=== PATIENT | female | born 1940 | race Caucasian/White ===

== ENCOUNTER 2024-10-20 14:13 | Emergency (ER) | payer MEDICARE, SELFPAY ==
--- NOTE | ~2024-10-20 | CT_ITS ---
EXAMINATION: CT HEAD WITHOUT CONTRAST CLINICAL INFORMATION: Fall, head pain. COMPARISON: None available. TECHNIQUE: Contiguous axial imaging was performed from the skull base to vertex without intravenous administration of contrast. This CT examination was performed using dose optimization techniques as appropriate, variously including the following: *Automated exposure control *Adjustment of mA and/or kV according to patient size (this includes techniques or standardized protocols for targeted exams where dose is matched to indication/reason for exam; i.e. extremities or head) *Use of iterative reconstruction technique FINDINGS: There is no evidence of intracranial hemorrhage or extra-axial fluid collection. There is no mass effect, or edema. No CT evidence of acute territorial infarct. Ventricles, sulci, and cisterns are normal in size and configuration for patient age. No hydrocephalus. No midline shift. Negative hyperdense MCA sign. Negative insular ribbon sign. Patchy periventricular and deep white matter hypoattenuation is consistent with mild small vessel ischemic changes. Partial empty sella. Orbital contents appear normal. There are retinal calcifications and lens replacements. No extracranial soft tissue abnormalities. The paranasal sinuses, mastoid air cells, and tympanic cavities are normally aerated. No suspicious bony abnormalities. There are no acute fractures evident. CT/CT head/brain wo IV con IMPRESSION: No acute intracranial abnormality. No fracture evident. Electronically signed by: Harsh Shane MD 10/20/2024 04:03 PM EDT
[2024-10-20 14:17] VITALS: BP 177/107; PULSE 66; RESP 18; TEMP 36.6; O2SAT 98; BMI 24.5
--- NOTE | 2024-10-20 14:18 | ED_ITS ---
HPI - General Adult General Chief complaint: Headache Stated complaint: Fall Head Strike 10/18/24 Time Seen by Provider: 10/20/24 15:10 Source: patient Mode of arrival: ambulatory Limitations: no limitations History of Present Illness ED Provider: MEHRAN SARKAR PA-C HPI narrative: 84 year old female with pmhx significant for HTN, anxiety/depression presents to the ED today for evaluation following fall 2 days ago. Patient recalls getting up from her bed around midnight and ambulating to the kitchen to get a glass of water. She reports falling while in the kitchen and striking the back of her head on the tile. She is unsure if she lost consciousness. She is not on anticoagulation. She states she was only on the ground for a few seconds before she was able to stand and ambulate back to bed. She initially attributed this to dehydration as she was not staying adequately hydrated. Admits to slight headache on waking the following morning that has been improving since. Reports resolution of headache on presentation to ED today. Reports speaking with her PCP today regarding incident who recommended coming to the ED for further evaluation. Denies dizziness, vision changes, nausea or vomiting, chest pain, shortness of breath, palpitations, Urinary symptoms, cough. Denies any symptoms at present. No history of similar. She does have high blood pressure and takes lisinopril for this. No known history of hypotension. Related Data Allergies Allergy/AdvReac Type Severity Reaction Status Date / Time doxycycline Allergy Anaphylaxis Verified 10/20/24 14:19 Penicillins Allergy Rash Verified 10/20/24 14:19 Review of Systems 2 Review of Systems: Yes all other systems are reviewed and are negative [facility] Past Medical History Attestation statement: The following information was validated with the patient. Source: old records reviewed and nursing notes reviewed Social History Social History Advance Directives: Yes Advance Directives Information Provided: Yes Advance Directives on File: No Do you have a plan to hurt others: No Plan Physical Exam ED Vital Signs: Vital Signs - 24 hr 10/20/24 14:17 10/20/24 15:46 10/20/24 15:54 Temperature 97.9 F Pulse Rate 66 64 59 Respiratory Rate 18 Blood Pressure 177/107 H 148/67 H 157/79 H Pulse Oximetry 98 Oxygen Delivery Method Room Air 05/23/25 15:55 10/20/24 16:44 Temperature 97.9 F Pulse Rate 61 61 Respiratory Rate 18 Blood Pressure 168/83 H 168/83 H Pulse Oximetry 98 Oxygen Delivery Method Room Air BMI result Body Mass Index 24.5 hypertensive, afebrile. Not tachycardic or hypoxic. General: Well appearing, in no acute distress. Skin: Warm, dry, intact. No rashes or lesions. Head: Normocephalic, atraumatic. no palpable skull fracture or hematoma. No chadwick sign, raccoon eyes. EENT: Hearing is intact b/l. Conjunctiva clear. PERRLA. EOM intact. Moist mucous membranes.? Neck: Supple without LAD Cardiac: Chest wall symmetric. RRR Lungs: Normal respiratory effort without accessory muscle use. CTA bilaterally. No rales, rhonchi, or wheezes.? Back: No midline spinous or paraspinal tenderness. No step off deformity. Ext: Upper and lower extremities atraumatic, without tenderness, deformity, swelling or erythema Neuro: AOx3. Normal speech. Ambulating with steady gait Course Course Course Narrative: RME, this is a rapid medical exam performed by Gavin Pollock please refer to primary provider for complete H&P- 84-year-old female presents for evaluation after a fall on happened 2 days ago. She fell and struck the back of her head. She is not sure if she had a syncopal episode but does not tripping or slipping. Her headache is improving, but she discuss with her primary doctor who recommended that she come to the hospital for evaluation. Plan for CT head as well as labs, EKG. No neuro deficits in triage. Reevaluation(s) Reevaluation #1: CBC without leukocytosis or left shift. Normocytic anemia, no priors to compare to. Chemistry showing hyponatremia to 131 - no priors to compare to. No AMS/ confusion. Patient AOX3.?No acute electrolyte abnormalities requiring intervention. No anahi. Troponin wnl. Liver function/ lipase wnl. UA without infection. Negative covid/flu/rsv. Ortho vitals negative. CT head/brain without bleed or skull fracture. EKG showing NSR without acute ischemic changes. > work up reassuring. Patient is well appearing and asymptomatic. Will have her follow up with PCP. Patient has remained stable throughout ED visit today. Discussed worrisome signs and symptoms and when to return to the ED. All questions answered at this time. Patient is agreeable with disposition and stable for discharge. Medical Decision Making Medical Decision Making [facility] Narrative: 84 year old female with pmhx significant for HTN, anxiety/depression presents to the ED today for evaluation following fall 2 days ago. Patient initially hypertensive on arrival to 177/107. She states her blood pressure elevates when she is around doctor/in hospitals. She states that they typically take 3 blood pressures and average it as it is typically high. She has been compliant with her lisinopril and did take this this morning. Asymptomatic. exam nonfocal and unremarkable. Differential diagnosis includes anemia, electrolyte abnormality, dehydration, viral syndrome, migraine vs tension type headache, ortho hypotension. No headache red flags. No focal neurologic findings. Presentation not consistent with acute intracranial bleed including SAH. Presentation not consistent with acute PEGGER infection including meningitis or brain abscess. Unlikely ASC, arrhythmia, PE. Labs, UA, imaging ordered from triage. Will add on orthostatic vital signs. Patient is well-appearing and asymptomatic. Anticipate discharge home if workup unremarkable. Differential Diagnosis Differential Diagnoses: The differential diagnosis associated with the presentation includes as above. Admission/Observation Not indicated Lab Data [facility] Lab Attestation statement: I reviewed the patient's lab results. as above. 10/20/24 14:38 10/20/24 14:38 Labs: Lab Results 10/20/24 10/20/24 Range/Units 14:38 16:11 WBC 7.0 (4.8-10.8) X10*3/uL RBC 3.26 L (4.20-5.50) X10*6/uL Hgb 10.8 L (12.0-16.0) g/dl Hct 31.0 L (37.0-47.0) % MCV 95.1 (80.0-98.0) fL MCH 33.1 H (27.0-33.0) pg MCHC 34.8 (31.0-35.0) g/dl RDW 13.1 (11.0-16.0) % Plt Count 247 (160-400) X10*3/uL MPV 9.3 L (9.4-12.3) fL Immature Gran % (Auto) 0.1 (0.0-0.4) % Neut % (Auto) 46.4 (45-73) % Lymph % (Auto) 42.0 H (20-40) % [place] % (Auto) 8.5 (2-11) % Eos % (Auto) 2.0 (0-4) % Baso % (Auto) 1.0 (0-2) % Lymph # (Auto) 2.9 (1.2-4.9) X10*3/uL [place] # (Auto) 0.6 (0.1-1.2) X10*3/uL Eos # (Auto) 0.1 (0.0-0.4) X10*3/uL Baso # (Auto) 0.1 (0.0-0.2) X10*3/uL Abs Immat Gran (auto) 0.01 (0.00-0.03) X10*3/uL Absolute Neuts (auto) 3.2 (2.0-8.3) x10*3/uL Absolute Nucleated RBC 0.000 (0.0-0.012) X10*3/uL Nucleated RBC % (auto) 0.0 (0.0-0.2) /100WBC Sodium 131 L (135-145) mmol/L Potassium 4.2 (3.3-5.1) mmol/L Chloride 100 (96-108) mmol/L Carbon Dioxide 26 (22-29) mmol/L Anion Gap 9 L (12-20) BUN 11 (9-16) mg/dL Creatinine 0.92 (0.5-1.4) mg/dL Estim Creat Clear Calc 42.4 Estimated GFR 58 Random Glucose 105 (60-115) mg/dL Calcium 8.8 (8.4-10.2) mg/dL Total Bilirubin 0.5 (0.0-1.0) mg/dL AST 27 (5-31) U/L ALT 15 (0-31) U/L Alkaline Phosphatase 45 (39-117) U/L Troponin I High Sens 2.9 (<3.5-17.0) ng/L Total Protein 6.9 (6.5-8.0) g/dL Albumin 4.1 (3.5-5.0) g/dL Lipase 27 (8-78) U/L Urine Color Yellow Urine Appearance Clear Urine pH 7.0 (5.0-9.0) Ur Specific [place] <= 1.005 (1.005-1.025) Urine Protein Negative (Neg-Trace) mg/dL Urine Glucose (UA) Negative (Negative) mg/dL Urine Ketones Negative (Negative) mg/dL Urine Blood Negative (Negative) Urine Nitrite Negative (Negative) Ur Leukocyte Esterase Negative (Negative) Urine RBC 0-2 (0-2) /HPF Urine WBC 0-5 (0-5) /HPF Ur Squamous Epith Cells 0-2 (0-2) /HPF Urine Bacteria None Seen (None Seen) Hyaline Casts 0-2 (0-2) /LPF Influenza Type A (PCR) NEGATIVE (Negative) Influenza Type B (PCR) NEGATIVE (Negative) RSV RNA Qual (PCR) NEGATIVE (Negative) SARS-CoV-2 RNA (RT-PCR) NEGATIVE (Negative) Independent Interpretation I performed an independent interpretation of an: EKG and CT Scan Interpretation: CT head without bleed EKG showing NSR, no acute ischemic changes Radiology Impression Discussion of test interpretation with radiology: I have reviewed the radiologist's reading. Radiologist Impression: EXAMINATION: CT HEAD WITHOUT CONTRAST CLINICAL INFORMATION: Fall, head pain. COMPARISON: None available. TECHNIQUE: Contiguous axial imaging was performed from the skull base to vertex without intravenous administration of contrast. This CT examination was performed using dose optimization techniques as appropriate, variously including the following: *Automated exposure control *Adjustment of mA and/or kV according to patient size (this includes techniques or standardized protocols for targeted exams where dose is matched to indication/reason for exam; i.e. extremities or head) *Use of iterative reconstruction technique FINDINGS: There is no evidence of intracranial hemorrhage or extra-axial fluid collection. There is no mass effect, or edema. No CT evidence of acute territorial infarct. Ventricles, sulci, and cisterns are normal in size and configuration for patient age. No hydrocephalus. No midline shift. Negative hyperdense MCA sign. Negative insular ribbon sign. Patchy periventricular and deep white matter hypoattenuation is consistent with mild small vessel ischemic changes. Partial empty sella. Orbital contents appear normal. There are retinal calcifications and lens replacements. No extracranial soft tissue abnormalities. The paranasal sinuses, mastoid air cells, and tympanic cavities are normally aerated. No suspicious bony abnormalities. There are no acute fractures evident. CT/CT head/brain wo IV con IMPRESSION: No acute intracranial abnormality. No fracture evident. Electronically signed by: Harsh Shane MD 10/20/2024 04:03 PM EDT Independent Historian Clinical information obtained from an independent historian. History obtained from or confirmed by: Friend Prescription Management I considered prescription management with: Pain Medication Chronic Conditions Patient?s care impacted by: Hypertension Social Determinants Patient?s care significantly limited by Social Determinants of Health including: Other Social Determinant of Health Critical Care Time Critical Care Time Critical Care Time: No Discharge Plan Discharge Clinical Impression: Closed head injury Patient Disposition: Home, Self-Care Instructions: Head Injury (ED) Additional Instructions: Your workup today is reassuring. The CT scan of your head does not show intracranial bleed or skull fracture. Your blood work shows low hemaglobin and hematocrit consistent with anemia however we do not have any priors to compare to. You are asymptomatic. Please follow up with your PCP for repeat labs next week. Return with any new or worsening symptoms. In the case of an emergency call 911. Referrals: Johanna Jaramillo NP [Primary Care Provider] - Interventions: ED Discharge Assessment Last Done: 10/20/24 16:44 Discharge Date/Time: 10/20/24 16:45 Print Language: Kyrgyz
--- NOTE | 2024-10-20 14:20 | ECG_ITS ---
Test Reason : weakness Blood Pressure : */* mmHG Vent. Rate : 65 BPM Atrial Rate : 65 BPM P-R Int : 148 ms QRS Dur : 90 ms QT Int : 420 ms P-R-T Axes : 59 34 65 degrees QTcB Int : 436 ms Normal sinus rhythm Normal ECG No previous ECGs available Referred By: Harshil Pollock Electronically Signed By: Emanuel Heath
[2024-10-20 14:55] LABS: MANUAL DIFF FLAG NO
[2024-10-20 14:57] LABS: Basophils Absolute Auto 0.1 X10*3/uL (0.0-0.2); Eosinophils Absolute Auto 0.1 X10*3/uL (0.0-0.4); Hemoglobin 10.8 g/dl (12.0-16.0); Imm Gran Abs Auto 0.01 X10*3/uL (0.00-0.03); Imm Gran Pct Auto 0.1 % (0.0-0.4); Lymphocytes Absolute Auto 2.9 X10*3/uL (1.2-4.9); Mean Corpuscular HGB Conc 34.8 g/dl (31.0-35.0); Mean Corpuscular Hemoglobin 33.1 pg (27.0-33.0); Mean Corpuscular Volume 95.1 fL (80.0-98.0); Mean Platelet Volume 9.3 fL (9.4-12.3); Monocytes Absolute Auto 0.6 X10*3/uL (0.1-1.2); Monocytes Percent Auto 8.5 % (2-11); Neutrophils Absolute Auto 3.2 x10*3/uL (2.0-8.3); Neutrophils Percent Auto 46.4 % (45-73); Platelet Count 247 X10*3/uL (160-400); Red Blood Count 3.26 X10*6/uL (4.20-5.50); Red Cell Distribution Width 13.1 % (11.0-16.0)
[2024-10-20 15:12] LABS: Alanine Aminotransferase 15 U/L (0-31); Albumin Level 4.1 g/dL (3.5-5.0); Alkaline Phosphatase 45 U/L (39-117); Anion Gap 9 (12-20); Aspartate Amino Transferase 27 U/L (5-31); Bilirubin Total 0.5 mg/dL (0.0-1.0); Blood Urea Nitrogen 11 mg/dL (9-16); Calcium 8.8 mg/dL (8.4-10.2); Carbon Dioxide 26 mmol/L (22-29); Chloride 100 mmol/L (96-108); Creatinine Clr Calc Pharmacy 42.4; Estimated Glomerular Filt Rate 58; Glucose Random 105 mg/dL (60-115); Lipase 27 U/L (8-78); Potassium 4.2 mmol/L (3.3-5.1); Sodium 131 mmol/L (135-145); Total Protein 6.9 g/dL (6.5-8.0)
--- OUTSIDE RECORDS SUMMARY | 2024-10-20 15:18 | XMS_ITS ---
Author Organization [facility] Address [address] [place] [address] Care Team Providers Care Corrections Nurse Name Role Phone Clint GRAHAM, Johanna Primary Care Provider Unavail David Bar Unavailable [phone] REASON FOR VISIT cx appt 09/26/24 Encounters Encounter Location Date Provider Diagnosis [facility] [address] [place] [address] 09/13/2024 David Almazan Plan Of Treatment No Information Progress Notes * Yoli CHANCE RDOB: [birth year] (83 yo F)Acc No.[id number]:09/13/2024 Patient:?ROBSON Yoli Dailey :1940???Age:83 Y???Sex:Female [address]:[address] [place] [id number] * true * Date:? Generated for Printi [email or web address]/Linda/eTransmitting on:?10/20/2024 03:17 PM EDT
[2024-10-20 15:19] LABS: Troponin-I High Sensitivity 2.9 ng/L (<3.5-17.0)
[2024-10-20 15:33] LABS: Influenza A PCR NEGATIVE (Negative); Influenza B PCR NEGATIVE (Negative); Resp Syncy Virus RNA Qual PCR NEGATIVE (Negative); SARS COV2 PCR INHOUSE NEGATIVE (Negative)
[2024-10-20 15:46] VITALS: BP 148/67; PULSE 64
[2024-10-20 15:54] VITALS: BP 157/79; PULSE 59
[2024-10-20 15:55] VITALS: BP 168/83; PULSE 61
[2024-10-20 16:17] LABS: Appearance Urine Clear; Color Urine Yellow; Glucose Urine UA Negative (Negative); Leukocyte Esterase Urine Negative (Negative); Nitrite Urine Negative (Negative); Specific Gravity - Urine <= 1.005 (1.005-1.025); Urine Blood Negative (Negative); Urine Ketones Negative (Negative); Urine Protein Negative (Neg-Trace)
[2024-10-20 16:24] LABS: Bacteria Urine None Seen (None Seen); Hyaline Casts Urine 0-2 /LPF (0-2); RBC Urine 0-2 /HPF (0-2); Squamous Epithelial Cell Urine 0-2 /HPF (0-2); WBC Urine 0-5 /HPF (0-5)
[2024-10-20 16:44] VITALS: BP 168/83; PULSE 61; RESP 18; TEMP 36.6; O2SAT 98
== END 2024-10-20 16:45 | disposition home or self-care (01) ==
PROVIDERS: Physician Assistant; Emergency Provider Emergency Medicine; PCP Nurse Practitioner Family
DX: S09.90XA Unspecified injury of head, initial encounter (principal); R51.9 Headache, unspecified; I10 Essential (primary) hypertension; F41.9 Anxiety disorder, unspecified; X58.XXXA Exposure to other specified factors, initial encounter; Y93.9 Activity, unspecified; Y92.9 Unspecified place or not applicable; Y99.8 Other external cause status; Z03.818 Encounter for observation for suspected exposure to other biological agents ruled out
CPT/HCPCS: 0241U; 70450; 80053; 81001; 83690; 84484; 85025; 93005; 99283; 99284

== ENCOUNTER → 2024-10-20 14:19 | Outpatient (BNV) | payer MEDICARE, SELFPAY | PROVIDERS: Emergency Provider Emergency Medicine; PCP Nurse Practitioner Family; Visit Provider Radiology Diagnostic Radiology | DX: R51.9 Headache, unspecified (principal); W19.XXXA Unspecified fall, initial encounter | CPT/HCPCS: 70450 ==

== ENCOUNTER → 2024-10-20 14:20 | Outpatient (BNV) | payer MEDICARE, SELFPAY | PROVIDERS: Emergency Provider Emergency Medicine; PCP Nurse Practitioner Family; Visit Provider Internal Medicine Cardiovascular Disease | DX: R53.1 Weakness (principal) | CPT/HCPCS: 93010 ==